=== PATIENT | female | born 1980 | race African-American/Black ===

== ENCOUNTER 2019-12-08 21:19 | Emergency (ER) | payer OTHER ==
[~2019-12-08] VITALS: Ht 157.5 cm; Wt 104.3 kg
[~2019-12-08 21:19] MED LIST: ONDANSETRON ODT8 MG PO; ULTRAM50 MG PO
[2019-12-08] MEDS ORDERED: DONNATAL/LIDOCAINE/MAALOX 30 ML SUSP PO STA (21:47)
[2019-12-08] MEDS ORDERED: KETOROLAC TROMETHAMINE 30 MG/ML VIAL IV STA (21:47)
[2019-12-08] MEDS ORDERED: SODIUM CHLORIDE FLUSH 10 ML SYR INJ PRN (22:00)
[2019-12-08] MEDS ORDERED: LIDOCAINE VISC 2% SOLN 15 ML UDC ONE (22:01)
[2019-12-08] MEDS ORDERED: BELLADONNA ALK/PHENOBARBITAL 5 ML UDC ONE (22:01)
[2019-12-08] MEDS ORDERED: KETOROLAC TROMETHAMINE 30 MG/ML VIAL ONE (22:02)
[2019-12-08] MEDS ORDERED: MAGNESIUM/ALUMINUM/SIMETHICONE 30 ML UDC ONE (22:02)
--- NOTE | 2019-12-08 22:35 | Diagnostic Imaging Report ---
EXAMINATION: CXR 2 VIEW - HOPD INDICATION: Chest pain, shortness of breath. COMPARISON: None FINDINGS: TUBES and LINES: None. LUNGS: Lungs are well inflated. Mild patchy right basilar opacity, likely atelectasis. There is no evidence of lobar pneumonia or pulmonary edema. PLEURA: No pleural effusion or pneumothorax. HEART AND MEDIASTINUM: The cardiomediastinal silhouette is unremarkable. BONES AND SOFT TISSUES: No acute osseous lesion. Soft tissues are unremarkable. UPPER ABDOMEN: No free air under the diaphragm. IMPRESSION: No acute thoracic abnormality. Signed by: Dr. Sebastien Vivar MD on 12/08/2019 10:31 PM
[2019-12-08] MEDS ORDERED: SODIUM CHLORIDE 0.9% 50ML 50 ML ONE (22:55)
[2019-12-08] MEDS ORDERED: IOPAMIDOL 370 MG/ML 200 ML INFUS..BTL INJ ONE (22:56)
[2019-12-08] MEDS ORDERED: SODIUM CHLORIDE 0.9% 1000ML 1,000 ML IV STA (23:20)
[2019-12-08] MEDS ORDERED: SODIUM CHLORIDE 0.9% 1000ML 1,000 ML ONE (23:27)
--- NOTE | 2019-12-09 00:10 | Diagnostic Imaging Report ---
TECHNIQUE: CT of the chest, abdomen and pelvis with intravenous contrast. INDICATION: Chest pain, shortness of breath, abdominal pain. COMPARISON: CT abdomen/pelvis 08/09/2019. TECHNIQUE: Chest, Abdomen and pelvis were scanned utilizing a multidetector helical scanner from the thoracic inlet to the pubic symphysis after administration of IV contrast (100 cc of Isovue 370). Coronal and sagittal reformations were obtained. Pulmonary embolism protocol of the chest and and portal venous protocol of the abdomen and pelvis was performed. COMPLICATIONS: None RADIATION DOSE: Total DLP: 813.7 mGy*cm Dose modulation, iterative reconstruction, and/or weight based adjustment of the mA/kV was utilized to reduce the radiation dose to as low as reasonably achievable. FINDINGS: LINES AND TUBES: None PULMONARY ARTERIES: Somewhat limited by motion artifact. No filling defect is identified within the pulmonary arteries to the segmental level. The subsegmental pulmonary arteries are not well opacified. Main pulmonary artery measures 2.3 cm in diameter. LUNGS AND AIRWAYS: Somewhat limited evaluation secondary to motion artifact. The central airways are patent. No evidence of pneumonia or pulmonary edema. PLEURA: The pleural spaces are clear. HEART AND MEDIASTINUM: The thyroid gland is normal. No significant mediastinal, hilar or axillary lymphadenopathy is seen. The heart and pericardium are within normal limits. Aberrant right subclavian artery. HEPATOBILIARY: No evidence of focal lesion. No biliary ductal dilation. GALLBLADDER: No radio-opaque stones or sludge. No wall thickening. SPLEEN: No splenomegaly. PANCREAS: No focal masses or ductal dilatation. ADRENALS: No adrenal nodules KIDNEYS/URETERS: Kidneys enhance symmetrically. No evidence of hydronephrosis, solid mass, or stone. GI TRACT: Status post Meir-en-Y gastric bypass. No evidence of wall thickening or distension. Appendix is normal. Moderate amount of stool in the colon. PELVIC ORGANS/BLADDER: Status post hysterectomy. LYMPH NODES: No lymphadenopathy. VESSELS: Unremarkable. PERITONEUM / RETROPERITONEUM: No free air or fluid. BONES AND SOFT TISSUES: Unremarkable. IMPRESSION: Somewhat limited by motion artifact, however there is no evidence of pulmonary embolism to the level of segmental pulmonary arteries. Status post gastric bypass without evidence of bowel obstruction. Moderate amount of stool in the colon. Signed by: Dr. Sebastien Vivar MD on 12/09/2019 12:07 AM
[2019-12-09] MEDS ORDERED: METHYLPREDNISOLONE SOD SUCC 125 MG/2ML VIAL IV ONE (01:00)
[2019-12-09] MEDS ORDERED: PROAIR HFA INH8.5 GM PO (01:05)
[2019-12-09] MEDS ORDERED: PREDNISONE20 MG PO (01:05)
[2019-12-09] MEDS ORDERED: MAGNESIUM CITR296 ML PO (01:05)
[2019-12-09] MEDS ORDERED: PANTOPRAZOLE SO40 MG PO (01:05)
[2019-12-09] MEDS ORDERED: AZITHROMYCIN500 MG PO (01:05)
== END 2019-12-09 01:20 | disposition home or self-care (01) ==
LOC: FSED 21:19
DX: R07.89 Other chest pain (principal); R10.816 Epigastric abdominal tenderness; K21.0 Gastro-esophageal reflux disease with esophagitis; J20.9 Acute bronchitis, unspecified; K59.00 Constipation, unspecified
CPT/HCPCS: 71046; 71260; 74177; 80053; 81003; 82553; 84484; 85025; 85379; 93005; 99284; J1885; J2930; J7030; Q9967

== ENCOUNTER 2022-06-05 13:37 | Emergency (ER) | payer OTHER ==
[~2022-06-05] VITALS: Ht 157.5 cm; Wt 104.3 kg
[~2022-06-05 13:37] MED LIST changes: +AZITHROMYCIN500 MG PO; +MAGNESIUM CITR296 ML PO; +PANTOPRAZOLE SO40 MG PO; +PREDNISONE20 MG PO; +PROAIR HFA INH8.5 GM PO
[2022-06-05] MEDS ORDERED: PEPCID20 MG PO (14:11)
[2022-06-05] MEDS ORDERED: IBUPROFEN600 MG PO (14:11)
[2022-06-05] MEDS ORDERED: MEDROL4 M2 PO (14:11)
== END 2022-06-05 15:05 | disposition home or self-care (01) ==
LOC: ER 13:42
DX: M79.631 Pain in right forearm (principal); M65.4 Radial styloid tenosynovitis [de Quervain]; F32.A Depression, unspecified; Z98.84 Bariatric surgery status
CPT/HCPCS: 99282

== ENCOUNTER 2025-02-13 15:29 | Emergency (ER) | payer OTHER ==
[~2025-02-13] VITALS: Ht 157.5 cm; Wt 106.8 kg
[~2025-02-13 15:29] MED LIST changes: +IBUPROFEN600 MG PO; +MEDROL4 M2 PO; +PEPCID20 MG PO
[2025-02-13 15:43] VITALS: PULSE 70; RESP 17; TEMP 97.9; O2SAT 98
[2025-02-13] MEDS: KETOROLAC TROMETHAMINE 60 MG/2 ML VIAL IM ONE (15:53)
[2025-02-13] MEDS ORDERED: MELOXICAM15 MG PO (15:54)
== END 2025-02-13 15:58 | disposition home or self-care (01) ==
LOC: FSED 15:34
DX: M79.644 Pain in right finger(s) (principal); M65.4 Radial styloid tenosynovitis [de Quervain]; Z98.84 Bariatric surgery status
CPT/HCPCS: 99284; J1885